=== PATIENT | male | born 1980 | race African-American/Black ===

== ENCOUNTER 2022-03-04 09:35 | Emergency (ER) | payer OTHER ==
[2022-03-04 09:44] VITALS: BP 143/83; PULSE 98; RESP 17; TEMP 97.9; BMI 34.9
[2022-03-04] MEDS ORDERED: IBUPROFEN 600 MG TABLET (FP) PO ONE (11:06)
[2022-03-04] MEDS ORDERED: ACETAMINOPHEN 325 MG TABLET (FP) PO ONE (11:06)
[2022-03-04] MEDS ORDERED: LIDOCAINE 5% TOPICAL PATCH TP ONE (11:06)
[2022-03-04] MEDS ORDERED: LIDOCAINE PATCH REMOVAL MC SCH (22:00)
== END 2022-03-04 11:38 | disposition home or self-care (01) ==
LOC: JERFT 09:35
DX: M79.601 Pain in right arm (principal); M79.602 Pain in left arm
CPT/HCPCS: 99282-25